=== PATIENT | female | born 1985 | race American Indian/Alaskan Native ===

== ENCOUNTER 2017-05-08 19:41 | Emergency (ER) | payer OTHER, BC ==
[2017-05-08 19:56] VITALS: BP 108/70; PULSE 97; RESP 18; TEMP 99; O2SAT 99
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
== END 2017-05-08 20:51 | disposition home or self-care (01) ==
LOC: ED 19:41
DX: S16.1XXA Strain of muscle, fascia and tendon at neck level, initial encounter (principal); V49.49XA Driver injured in collision with other motor vehicles in traffic accident, initial encounter; Y92.410 Unspecified street and highway as the place of occurrence of the external cause